=== PATIENT | male | born 1970 | race Caucasian/White ===

== ENCOUNTER 2018-04-25 17:58 | Inpatient (IN) ==
[2018-04-25] MEDS ORDERED: NS 1,000 ML IV ONE ×3 (18:14→23:44)
[2018-04-25] MEDS ORDERED: KETOROLAC 30 MG/ML INJECTION IVP ONE (18:14)
[2018-04-25] MEDS ORDERED: CEFTRIAXONE (ER USE ONLY) 1 GM in NS 100 ML IV ONE (18:14)
--- NOTE | 2018-04-25 18:19 | Emergency Department Report ---
Fever HPI - General Chief Complaint: Fever Stated Complaint: Fever, Weakness Time Seen by Provider: 04/25/18 18:14 - History of Present Illness HPI Narrative: 48-year-old male presents with sudden onset fever and body aches. He states that he went to bed yesterday feeling perfect, he ate dinner is normal. However when he woke up this morning he had fever and body ache. He is laid around all day, could not work. Has felt progressively worse during the day. Began to feel increasingly weak. States he does 250 pushups a day, as regular workout. However today he couldn't even get himself up off the couch. He does have a history of cellulitis left lower leg and this evening the leg began to hurt. He does work around [place] and his concern he may have been exposed to West Nile virus as well. No history of influenza, states he does not even get during flu seasons. He has had gastric bypass and does have anemia, does not maintain his B12 and iron as he is supposed to. - Related Data Home Medications Medication Instructions Recorded Confirmed Acetaminophen [Acetaminophen Extra 2,500 mg PO O 04/25/18 04/25/18 Strength] Ibuprofen [Advil] 1,000 mg PO O 04/25/18 04/25/18 Allergies Allergy/AdvReac Type Severity Reaction Status Date / Time No Known Allergies Allergy Verified 04/25/18 18:09 Review of Systems All systems: reviewed and negative except as stated PFS Patient Stated Medical History Anemia Yes Depression Yes Anemia, obesity Surgical History: gastricBypass - Social History Smoking status: Unknown if ever smoked Physical Exam - Limitations Limitations: no limitations - General General appearance: lethargic - Normal Exams: Head:: Normocephalic without trauma Chest/Respirations:: Clear all holland, with good airflow, and symmetry bilaterally Cardiovascular:: Regular rate and rhythm, without murmur or gallop, Pulses 2+ all extremities, capillary refill, <2 seconds all extremities Abdomen:: Bowel sounds positive, soft, non-tender, non-distended, no hepatosplenomegaly, masses or bruits noted Neurological:: and oriented, cranial nerves, motor/sensory/cerebellar, exams w/ o gross deficits, to observation Course Vital Signs Temperature 100.7 F H 04/25/18 18:00 Pulse Rate 77 04/25/18 18:00 Respiratory Rate 18 04/25/18 18:00 Blood Pressure 141/66 H 04/25/18 18:00 Pulse Oximetry 98 04/25/18 18:00 Temperature 101.6 F H 04/25/18 20:41 Pulse Rate 71 04/25/18 21:00 Respiratory Rate 12 04/25/18 21:20 Blood Pressure 141/68 H 04/25/18 21:00 Pulse Oximetry 99 04/25/18 21:00 Fever - [facility] Narrative Medical decision making narrative: Peripheral IV placed with 1 L normal saline bolus. Patient had some immediate improvement in mental status with IV fluid and had no difficulty communicating after the initial liter was approximately half way in. CBC, CMP, UA, lactate, CRP, blood culture, urine culture ordered. Chest x-ray also ordered. White count is normal with mild anemia noted which is appropriate for his history of B12 deficiency anemia. CMP is appropriate. Lactate is negative. CRP is elevated at 63. Chest x-ray shows possible very small right lower lobe infiltrate. CT head was ordered and is negative. Patient's confusion is fully resolved, he is much more comfortable after 30 mg Toradol and 1 mg of Ofirmev. Spoke with hospitalist and reviewed the case. Patient will be admitted observation with SIRS. Second liter of fluid was started. Patient was given 4 mg of morphine as well IV prior to leaving the ER. Rocephin given 1 g IV as soon as blood cultures obtained early in visit. - Medical Records Attestation: I reviewed the patient's medical records. - Lab Data Result diagrams: 04/25/18 18:35 04/25/18 18:35 Lab Results 04/25/18 04/25/18 04/25/18 Range/Units 18:35 18:35 19:19 WBC 8.6 (4.5-11.0) T/MM3 RBC 3.91 L (4.50-5.90) M/MM3 Hgb 9.8 L (13.5-17.5) GM/DL Hct 32.0 L (41-53) % MCV 81.8 (80-100) UM3 MCH 25.1 L (26-34) UUG MCHC 30.6 L (31-37) GM/DL RDW Std Deviation 44.0 (36.9-50.2) FL Plt Count 245 (130-400) T/MM3 MPV 10.0 (9.4-12.4) UM3 Immature Gran % (Auto) Not performed Neut % (Auto) Not performed Lymph % (Auto) Not performed [place] % (Auto) Not performed Eos % (Auto) Not performed Baso % (Auto) Not performed Neut # (Auto) Not performed Lymph # (Auto) Not performed [place] # (Auto) Not performed Eos # (Auto) Not performed Baso # (Auto) Not performed Abs Immat Gran (auto) Not performed Neutrophils % (Manual) 93.0 H (33-66) % Lymphocytes % (Manual) 3.0 L (23-45) % Monocytes % (Manual) 4.0 (0-9.0) % Neutrophils # (Manual) 8.0 H (1.8-7.7) T/MM3 Lymphocytes # (Manual) 0.3 L (1-4.8) T/MM3 Monocytes # (Manual) 0.3 (0-0.8) T/MM3 RBC Morph Comment Normal Turbidity < 20 (0-20) Sodium 140 (136-146) MEQ/L Potassium 4.0 (3.6-5) MEQ/L Chloride 108 H (98-107) MEQ/L Carbon Dioxide 22 (22-30) MEQ/L Anion Gap 10 (5-15) meq/L BUN 10.0 (9-20) MG/DL Creatinine 0.9 (0.8-1.5) mg/dL GFR Calculation 91 (>60) mL/min BUN/Creatinine Ratio 11 (6-26) RATIO Glucose 99 (75-110) MG/DL Calculated Osmolality 268 (261-280) MOSM/KG Calcium 8.6 (8.4-10.2) MG/DL Total Bilirubin 0.40 (0.20-1.30) MG/DL Icterus Index < 2 (0-7) AST 22 (17-59) U/L ALT 16 (1-50) U/L Alkaline Phosphatase 71 (38-126) U/L C-Reactive Protein 63.7 H (0-9) mg/L Total Protein 6.2 L (6.3-8.2) g/dL Albumin 3.5 (3.5-5.0) g/dL Globulin 2.7 (2.4-3.6) G/DL Albumin/Globulin Ratio 1.3 (1.1-2.2) RATIO Plasma Lactate 0.9 (0.6-2.2) MMOL/L Specimen Hemolysis < 15 (0-25) Ur Collection Type Urine Color (YELLOW) Urine Clarity Urine pH (5.0-8.0) Ur Specific [place] (1.015-1.025) Urine Protein (NEGATIVE) Urine Glucose (UA) (NEGATIVE) Urine Ketones (NEGATIVE) Urine Occult Blood (NEGATIVE) Urine Nitrate (NEGATIVE) Urine Bilirubin (NEGATIVE) Urine Urobilinogen (NORMAL) EU/DL Ur Leukocyte Esterase (NEGATIVE) Urinalysis Comment Adenovirus (PCR) Negative (Negative) B.parapertussis DNA PCR Negative (Negative) C. pneumoniae DNA (PCR) Negative (Negative) Coronavirus OC43 (PCR) Negative (Negative) Coronavirus HKU1 (PCR) Negative (Negative) Coronavirus 229E (PCR) Negative (Negative) Coronavirus NL63 (PCR) Negative (Negative) Human Metapneumovir PCR Negative (Negative) Influenza Type A (PCR) Negative (Negative) Influenza Type B (PCR) Negative (Negative) M. pneumoniae (PCR) Negative (Negative) Parainfluenza 1 (PCR) Negative (Negative) Parainfluenza 2 (PCR) Negative (Negative) Parainfluenza 3 (PCR) Negative (Negative) Parainfluenza 4 (PCR) Negative (Negative) RSV (PCR) Negative (Negative) Entero/Rhino (PCR) Negative (Negative) 04/25/18 Range/Units 19:31 WBC (4.5-11.0) T/MM3 RBC (4.50-5.90) M/MM3 Hgb (13.5-17.5) GM/DL Hct (41-53) % MCV (80-100) UM3 MCH (26-34) UUG MCHC (31-37) GM/DL RDW Std Deviation (36.9-50.2) FL Plt Count (130-400) T/MM3 MPV (9.4-12.4) UM3 Immature Gran % (Auto) Neut % (Auto) Lymph % (Auto) [place] % (Auto) Eos % (Auto) Baso % (Auto) Neut # (Auto) Lymph # (Auto) [place] # (Auto) Eos # (Auto) Baso # (Auto) Abs Immat Gran (auto) Neutrophils % (Manual) (33-66) % Lymphocytes % (Manual) (23-45) % Monocytes % (Manual) (0-9.0) % Neutrophils # (Manual) (1.8-7.7) T/MM3 Lymphocytes # (Manual) (1-4.8) T/MM3 Monocytes # (Manual) (0-0.8) T/MM3 RBC Morph Comment Turbidity (0-20) Sodium (136-146) MEQ/L Potassium (3.6-5) MEQ/L Chloride (98-107) MEQ/L Carbon Dioxide (22-30) MEQ/L Anion Gap (5-15) meq/L BUN (9-20) MG/DL Creatinine (0.8-1.5) mg/dL GFR Calculation (>60) mL/min BUN/Creatinine Ratio (6-26) RATIO Glucose (75-110) MG/DL Calculated Osmolality (261-280) MOSM/KG Calcium (8.4-10.2) MG/DL Total Bilirubin (0.20-1.30) MG/DL Icterus Index (0-7) AST (17-59) U/L ALT (1-50) U/L Alkaline Phosphatase (38-126) U/L C-Reactive Protein (0-9) mg/L Total Protein (6.3-8.2) g/dL Albumin (3.5-5.0) g/dL Globulin (2.4-3.6) G/DL Albumin/Globulin Ratio (1.1-2.2) RATIO Plasma Lactate (0.6-2.2) MMOL/L Specimen Hemolysis (0-25) Ur Collection Type Urine, void-cc/notcc Urine Color Yellow (YELLOW) Urine Clarity Clear Urine pH 8.5 A (5.0-8.0) Ur Specific [place] 1.015 (1.015-1.025) Urine Protein Negative (NEGATIVE) Urine Glucose (UA) Negative (NEGATIVE) Urine Ketones Negative (NEGATIVE) Urine Occult Blood Negative (NEGATIVE) Urine Nitrate Negative (NEGATIVE) Urine Bilirubin Negative (NEGATIVE) Urine Urobilinogen 0.2 (NORMAL) EU/DL Ur Leukocyte Esterase Negative (NEGATIVE) Urinalysis Comment Microscopic not ind. Adenovirus (PCR) (Negative) B.parapertussis DNA PCR (Negative) C. pneumoniae DNA (PCR) (Negative) Coronavirus OC43 (PCR) (Negative) Coronavirus HKU1 (PCR) (Negative) Coronavirus 229E (PCR) (Negative) Coronavirus NL63 (PCR) (Negative) Human Metapneumovir PCR (Negative) Influenza Type A (PCR) (Negative) Influenza Type B (PCR) (Negative) M. pneumoniae (PCR) (Negative) Parainfluenza 1 (PCR) (Negative) Parainfluenza 2 (PCR) (Negative) Parainfluenza 3 (PCR) (Negative) Parainfluenza 4 (PCR) (Negative) RSV (PCR) (Negative) Entero/Rhino (PCR) (Negative) - Radiology Data Attestation: I reviewed the patient's radiology results. Disposition Clinical Impression: SIRS (systemic inflammatory response syndrome) Disposition: 02 To [facility] Condition: Improved Prescriptions: No Action Ibuprofen [Advil] 1,000 mg PO O Acetaminophen [Acetaminophen Extra Strength] 2,500 mg PO O Time of Disposition: 22:20 - Seen By: physician
--- OUTSIDE RECORDS SUMMARY | 2018-04-25 18:20 | External Medical Summary | Clinical Summary ---
:1970 Author Organization [facility] Address [address] [place] [address] Care Team Providers Name Role Phone Unavailable Primary Care Provider Unavailable Allergies No Known Allergies Current Medications Prescription Sig. Disp. Refills Start Date End Date Status citalopram (CELEXA) Take 1 tablet (20 14 tablet 0 08/03/2017 Active 20 MG mg total) by mouth tabletIndications: daily. Depression QUEtiapine (SEROQUEL) Take 1 tablet (50 14 tablet 0 08/02/2017 Active 50 MG mg total) by mouth tabletIndications: at bedtime. Insomnia folic acid (FOLVITE) Take 1 tablet (1 mg 14 tablet 0 08/02/2017 Active 1 MG total) by mouth tabletIndications: daily. Alcohol use disorder, severe, dependence (HCC) multivitamin Take 1 tablet by 14 each 0 08/03/2017 Active w/minerals (CENTRUM) mouth daily. TABSIndications: Alcohol use disorder, severe, dependence (HCC) thiamine 100 MG Take 1 tablet (100 14 tablet 0 08/03/2017 Active tabletIndications: mg total) by mouth Alcohol use disorder, daily. severe, dependence (HCC) Medicated Lip Apply topically as 08/02/2017 Active Ointment (BLISTEX) needed (dry skin). OINTIndications: Lip May send this dryness medication home with the patient. 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) Resolved Problems Problem Noted Date Resolved Date Suicidal risk 07/30/2017 08/02/2017 Social History Tobacco Use Types Packs/Day Years Used Date Never Smoker Smokeless Tobacco: Current User Chew Comments: 1 can per day Alcohol Use Drinks/Week oz/Week Comments Yes 1/2 gallon per day, last used 07/26/17 Sex Assigned at Date Recorded Not on file Last Filed Vital Signs Vital Sign Reading Time Taken Blood Pressure 116/71 08/02/2017 8:21 AM CDT Pulse 98 08/02/2017 8:21 AM CDT Temperature 36.7 C (98 F) 08/02/2017 8:20 AM CDT Respiratory Rate 16 08/02/2017 8:20 AM CDT Oxygen Saturation 99% 08/02/2017 8:20 AM CDT Inhaled Oxygen Concentration - - Weight 104.3 kg (230 lb) 07/29/2017 8:24 PM CDT Height 175.3 cm (5' 9") 07/29/2017 8:24 PM CDT Body Mass Index 33.97 07/29/2017 8:24 PM CDT Plan of Treatment Health Maintenance Due Date Last Done Comments Varicella Vaccines (1 of 2 - 2-dose adolescent series) 02/06/1985 DTaP,Tdap,and Td Vaccines (1 - Tdap) 02/06/1991 Influenza Vaccine (#1) 2018 Results Not on filefrom Last 3 Months
--- OUTSIDE RECORDS SUMMARY | 2018-04-25 18:20 | External Medical Summary | Referral Summary ---
:1970 Author Organization [facility] Address [address] [place] [address] Care Team Providers Name Role Phone No PCP, Pt States Primary Care Physician Encounter [facility] Date(s): 11/14/17 - 11/14/[address] [address] [place] Encounter Diagnosis Headache (Discharge Diagnosis) - 11/14/17 Weakness (Discharge Diagnosis) - 11/14/17 Discharge Disposition: 01-Home or Self Care Attending Physician: Gutierrez Hanna MD Admitting Physician: Gutierrez Hanna MD Vital Signs Most recent to oldest [Reference Range]: 1 Temperature Oral [35.8-37.3 degC] 36.1 degC (11/14/17 4:12 PM) Peripheral Pulse Rate [60-100 bpm] 63 bpm (11/14/17 4:12 PM) Heart Rate Monitored [60-100 bpm] 62 bpm (11/14/17 3:30 PM) Respiratory Rate [14-20 br/min] 18 br/min (11/14/17 4:12 PM) Blood Pressure [90-140/60-90 mmHg] 121/84 mmHg (11/14/17 4:12 PM) Mean Arterial Pressure, Cuff 108 mmHg (11/14/17 3:30 PM) SpO2 100 % (11/14/17 4:12 PM) Problem List Condition Effective Dates Status Health Status Informant Anemia(Confirmed) Active patient Allergies, Adverse Reactions, Alerts No Known Medication Allergies Results Hematology Most recent to oldest [Reference Range]: 1 WBC [4.8-10.8 10*3/uL] 6.3 10*3/uL (11/14/17 10:52 AM) RBC [4.60-6.20] 4.15 *LOW* (11/14/17 10:52 AM) Hgb [14.0-18.0 gm/dL] 9.6 gm/dL *LOW* (11/14/17 10:52 AM) Hct [42.0-52.0 %] 31.9 % *LOW* (11/14/17 10:52 AM) MCV [82.0-99.0 fL] 76.9 fL *LOW* (11/14/17 10:52 AM) MCH [27.0-32.0 pg] 23.1 pg *LOW* (11/14/17 10:52 AM) MCHC [32.0-36.0 gm/dL] 30.1 gm/dL *LOW* (11/14/17 10:52 AM) RDW [11.5-14.5 %] 15.4 % *HI* (11/14/17 10:52 AM) Platelet [150-400 10*3/uL] 306 10*3/uL (11/14/17 10:52 AM) MPV [9.4-12.3 fL] 10.3 fL (11/14/17 10:52 AM) Immature Granulocytes [0.0-1.0 %] 0.2 % (11/14/17 10:52 AM) Neutrophils [51-75 %] 61 % (11/14/17 10:52 AM) Lymphocytes [20-46 %] 30 % (11/14/17 10:52 AM) Monocytes [4-11 %] 7 % (11/14/17 10:52 AM) Eosinophils [0-4 %] 1 % (11/14/17 10:52 AM) Basophils [0-2 %] 1 % (11/14/17 10:52 AM) Neutro Absolute [1.90-7.00] 3.87 (11/14/17 10:52 AM) Lymph Absolute [0.80-3.30] 1.90 (11/14/17 10:52 AM) [place] Absolute [0.30-1.00] 0.44 (11/14/17 10:52 AM) Eos Absolute [0.00-0.50] 0.06 (11/14/17 10:52 AM) Baso Absolute [0.00-0.20] 0.04 (11/14/17 10:52 AM) Nucleated RBC Automated [0 /100 WBC] 0.0 /100 WBC (11/14/17 10:52 AM) Chemistry Most recent to oldest [Reference Range]: 1 Sodium Lvl [136-144 mEq/L] 137 mEq/L (11/14/17 10:52 AM) Potassium Lvl [3.6-5.1 mEq/L] 3.8 mEq/L (11/14/17 10:52 AM) Chloride [99-109 mEq/L] 104 mEq/L (11/14/17 10:52 AM) CO2 [22-32 mEq/L] 24 mEq/L (11/14/17 10:52 AM) AGAP [3-20 mEq/L] 9 mEq/L (11/14/17 10:52 AM) BUN [4-20 mg/dL] 10 mg/dL (11/14/17 10:52 AM) Glucose Lvl [70-100 mg/dL] 114 mg/dL *HI* (11/14/17 10:52 AM) Creatinine Lvl [0.64-1.27 mg/dL] 0.88 mg/dL (11/14/17 10:52 AM) eGFR [>60 mL/min] >60 mL/min 1 (11/14/17 10:52 AM) Calcium Lvl [8.6-10.0 mg/dL] 9.1 mg/dL (11/14/17 10:52 AM) Albumin Lvl [3.5-4.8 gm/dL] 3.7 gm/dL (11/14/17 10:52 AM) Total Protein [6.1-7.9 gm/dL] 6.4 gm/dL (11/14/17 10:52 AM) Globulin [1.9-4.3 gm/dL] 2.7 gm/dL (11/14/17 10:52 AM) ALT [17-63 U/L] 19 U/L (11/14/17 10:52 AM) AST [15-41 U/L] 26 U/L (11/14/17 10:52 AM) Alk Phos [26-104 U/L] 72 U/L (11/14/17 10:52 AM) Bili Total [0.2-1.2 mg/dL] 0.4 mg/dL 2 (11/14/17 10:52 AM) Troponin [<0.06 ng/mL] <0.05 ng/mL (11/14/17 10:52 AM) 1Result Comment: Multiply eGFR results by 1.21 for race.2Result Comment: Naproxen, specifically the metabolite O-desmethylnaproxen, may cause spurious elevation in Total Bilirubin levels. Social History Social History Type Response Smoking Status 10 or more cigarettes (1/2 pack or more)/day in last 30 days; Type: Oral entered on: 11/14/17
--- OUTSIDE RECORDS SUMMARY | 2018-04-25 18:20 | External Medical Summary | Referral Summary ---
:1970 Author Organization [facility] Address [address] [place] [address] Care Team Providers Name Role Phone No PCP, Pt States Primary Care Physician Encounter [facility] [id number] Date(s): 02/04/18 - 02/05/18 [address] [place] [address] [place] Discharge Disposition: 07-Left Without Being Seen Vital Signs Most recent to oldest [Reference Range]: 1 Temperature Oral [35.8-37.3 degC] 36.4 degC (02/04/18 11:50 PM) Peripheral Pulse Rate [60-100 bpm] 106 bpm *HI* (02/04/18 11:50 PM) Respiratory Rate [14-20 br/min] 22 br/min *HI* (02/04/18 11:50 PM) Blood Pressure [90-140/60-90 mmHg] 123/74 mmHg (02/04/18 11:50 PM) SpO2 96 % (02/04/18 11:50 PM) Problem List Condition Effective Dates Status Health Status Informant Acute pain(Confirmed) Active Anemia(Confirmed) Active At risk for activity Active intolerance(Confirmed)1 Fluid imbalance(Confirmed)2 Active 1Problem added automatically by system based on initiation of At Risk for Activity Intolerance Plan of [id number] added automatically by system based on initiation of Fluid Volume Imbalance Plan of Care Allergies, Adverse Reactions, Alerts No Known Medication Allergies Medications Carafate 1 g oral tablet 1 g 1 tabs, Oral, QIDACHS, # 120 tabs, 0 Refill(s) Start Date: 01/24/18 Stop Date: 02/23/18 Status: Orderedferrous sulfate 325 mg (65 mg elemental iron) oral delayed release tablet 325 mg 1 tabs, Oral, Daily, # 30 tabs, 0 Refill(s) Start Date: 01/24/18 Status: OrderedFINISHED MEDICATION FINISHED MEDICATION, See Instructions, Bactrim DS 1 tabs oral twice daily x 5 days FINISHED 01/29/18, 0 Refill(s) Start Date: 02/05/18 Status: OrderedProtonix 40 mg oral delayed release tablet 40 mg 1 tabs, Oral, BID, # 180 tabs, 0 Refill(s) Start Date: 01/24/18 Stop Date: 04/24/18 Status: Ordered Procedures Procedure Date Related Diagnosis Body Site Status Esophagogastroduodenoscopy Balloon 01/23/18 Completed Dilatation1 Procedure with Anesthesia2 01/23/18 Completed 1auto-populated from documented surgical [id number] from documented surgical case Social History Social History Type Response Smoking Status Former smoker, quit more than 30 days ago; Type: Oral entered on: 01/19/18
--- OUTSIDE RECORDS SUMMARY | 2018-04-25 18:20 | External Medical Summary | Referral Summary ---
:1970 Author Organization [facility] Address [address] [place] [address] Care Team Providers Name Role Phone No PCP, States Primary Care Physician Encounter VC Date(s): 02/10/18 - 02/11/18 [facility] [address] [place] [id number] Encounter Diagnosis Electrolyte abnormality (Discharge Diagnosis) - 02/11/18 Alcohol intoxication (Discharge Diagnosis) - 02/10/18 Anemia (Discharge Diagnosis) - 02/11/18 Alcohol abuse (Discharge Diagnosis) - 02/11/18 Discharge Disposition: 01-Home or Self Care Attending Physician: Yunior Kay DO Admitting Physician: Yunior Kay DO Vital Signs Most recent to oldest [Reference Range]: 1 Temperature Temporal Artery [36.3-37.8 degC] 36.3 degC (02/10/18 3:39 AM) Peripheral Pulse Rate [60-100 bpm] 78 bpm (02/10/18 3:39 AM) Heart Rate Monitored [60-100 bpm] 63 bpm (02/11/18 3:11 AM) Respiratory Rate [14-20 br/min] 14 br/min (02/11/18 3:11 AM) Blood Pressure [90-140/60-90 mmHg] 129/74 mmHg (02/11/18 3:11 AM) Mean Arterial Pressure, Cuff 92 mmHg (02/11/18 12:08 AM) SpO2 99 % (02/11/18 3:11 AM) Problem List Condition Effective Dates Status Health Status Informant Acute pain(Confirmed) Active Anemia(Confirmed) Active At risk for activity Active intolerance(Confirmed)1 Fluid imbalance(Confirmed)2 Active 1Problem added automatically by system based on initiation of At Risk for Activity Intolerance Plan of [id number] added automatically by system based on initiation of Fluid Volume Imbalance Plan of Care Allergies, Adverse Reactions, Alerts No Known Medication Allergies Medications Antioxidant Multiple Vitamins (A,D,E,K-intensive) and Minerals oral capsule 1 caps, Oral, Daily, # 60 caps, 0 Refill(s), Pharmacy: [facility] #[id number] Start Date: 02/06/18 Status: OrderedExcedrin Express oral tablet 2 tabs, Oral, q6hr, as needed for headache, # 50 tabs, 0 Refill(s), Pharmacy: [facility] #[id number] Start Date: 02/08/18 Status: Orderedferrous sulfate 325 mg (65 mg elemental iron) oral delayed release tablet 325 mg 1 tabs, Oral, Daily, # 30 tabs, 0 Refill(s), Pharmacy: [facility] # [id number], 1 tabs Oral Daily Start Date: 02/06/18 Status: Orderedfolic acid 1 mg oral tablet 1 mg 1 tabs, Oral, Daily, # 30 tabs, 0 Refill(s), Pharmacy: [facility] # [id number], 1 tabs Oral Daily Start Date: 02/06/18 Status: Orderedibuprofen 800 mg oral tablet 800 mg 1 tabs, Oral, q6hr, Headache, not to exceed 3200 mg/day, # 30 tabs, 0 Refill(s), Pharmacy: [facility] #[id number], 1 tabs Oral q6hr,PRN:Headache, Instr:not to exceed 3200 mg/day Start Date: 02/08/18 Status: OrderedMultiple Vitamins with Iron oral tablet 1 tabs, Oral, Daily, # 30 tabs, 0 Refill(s) Start Date: 02/11/18 Status: OrderedProtonix 40 mg oral delayed release tablet 40 mg 1 tabs, Oral, BID, # 180 tabs, 0 Refill(s), Pharmacy: [facility] # [id number], 1 tabs Oral BID,x90 days Start Date: 02/06/18 Stop Date: 05/07/18 Status: Orderedsertraline 50 mg oral tablet 50 mg 1 tabs, Oral, Daily, Double dose to 100mg a day in 1 week, # 30 tabs, 4 Refill(s), Pharmacy: [facility] #[id number], 1 tabs Oral Daily,Instr:Double dose to 100mg a day in 1 week Start Date: 02/08/18 Status: Orderedthiamine 100 mg oral tablet 100 mg 1 tabs, Oral, Daily, # 30 tabs, 0 Refill(s), Pharmacy: [facility] # [id number], 1 tabs Oral Daily Start Date: 02/06/18 Status: Ordered Results Hematology Most recent to oldest [Reference Range]: 1 WBC [4.8-10.8 10*3/uL] 6.8 10*3/uL (02/10/18 3:48 AM) RBC [4.60-6.20] 4.15 *LOW* (02/10/18 3:48 AM) Hgb [14.0-18.0 gm/dL] 10.1 gm/dL *LOW* (02/10/18 3:48 AM) Hct [42.0-52.0 %] 32.6 % *LOW* (02/10/18 3:48 AM) MCV [82.0-99.0 fL] 78.6 fL *LOW* (02/10/18 3:48 AM) MCH [27.0-32.0 pg] 24.3 pg *LOW* (02/10/18 3:48 AM) MCHC [32.0-36.0 gm/dL] 31.0 gm/dL *LOW* (02/10/18 3:48 AM) RDW [11.5-14.5 %] 20.2 % *HI* (02/10/18 3:48 AM) Platelet [150-400 10*3/uL] 414 10*3/uL *HI* (02/10/18 3:48 AM) MPV [9.4-12.3 fL] 10.0 fL (02/10/18 3:48 AM) Immature Granulocytes [0.0-1.0 %] 0.3 % (02/10/18 3:48 AM) Neutrophils [51-75 %] 58 % (02/10/18 3:48 AM) Lymphocytes [20-46 %] 35 % (02/10/18 3:48 AM) Monocytes [4-11 %] 6 % (02/10/18 3:48 AM) Eosinophils [0-4 %] 0 % (02/10/18 3:48 AM) Basophils [0-2 %] 0 % (02/10/18 3:48 AM) Neutro Absolute [1.90-7.00] 3.92 (02/10/18 3:48 AM) Lymph Absolute [0.80-3.30] 2.41 (02/10/18 3:48 AM) [place] Absolute [0.30-1.00] 0.43 (02/10/18 3:48 AM) Eos Absolute [0.00-0.50] 0.01 (02/10/18 3:48 AM) Baso Absolute [0.00-0.20] 0.03 (02/10/18 3:48 AM) Differential Scanned Slide (02/10/18 3:48 AM) Chemistry Most recent to oldest [Reference Range]: 1 Sodium Lvl [136-144 mEq/L] 141 mEq/L (02/10/18 3:48 AM) Potassium Lvl [3.6-5.1 mEq/L] 3.2 mEq/L *LOW* (02/10/18 3:48 AM) Chloride [99-109 mEq/L] 110 mEq/L *HI* (02/10/18 3:48 AM) CO2 [22-32 mEq/L] 21 mEq/L *LOW* (02/10/18 3:48 AM) AGAP [3-20 mEq/L] 10 mEq/L (02/10/18 3:48 AM) BUN [4-20 mg/dL] 9 mg/dL (02/10/18 3:48 AM) Glucose Lvl [70-100 mg/dL] 94 mg/dL (02/10/18 3:48 AM) Creatinine Lvl [0.64-1.27 mg/dL] 0.94 mg/dL (02/10/18 3:48 AM) eGFR [>60 mL/min] >60 mL/min 1 (02/10/18 3:48 AM) Calcium Lvl [8.6-10.0 mg/dL] 7.6 mg/dL *LOW* (02/10/18 3:48 AM) Albumin Lvl [3.5-4.8 gm/dL] 3.1 gm/dL *LOW* (02/10/18 3:48 AM) Total Protein [6.1-7.9 gm/dL] 5.6 gm/dL *LOW* (02/10/18 3:48 AM) Globulin [1.9-4.3 gm/dL] 2.5 gm/dL (02/10/18 3:48 AM) ALT [17-63 U/L] 11 U/L *LOW* (02/10/18 3:48 AM) AST [15-41 U/L] 19 U/L (02/10/18 3:48 AM) Alk Phos [26-104 U/L] 52 U/L (02/10/18 3:48 AM) Bili Total [0.2-1.2 mg/dL] 0.3 mg/dL 2 (02/10/18 3:48 AM) 1Result Comment: Multiply eGFR results by 1.21 for race.2Result Comment: Naproxen, specifically the metabolite O-desmethylnaproxen, may cause spurious elevation in Total Bilirubin levels.Therapeutic Drug Monitoring Most recent to [Reference Range]: 1 Acetaminophen Lvl [10-30 ug/mL] <10 ug/mL (02/10/18 3:48 AM) Salicylate Lvl [0-30 mg/dL] <4 mg/dL 1 (02/10/18 3:48 AM) 1Result Comment: Sulfasalazine may cause false high salicylate levels and Sulfapyridine may cause false low salicylate levels.Toxicology Most recent to [Reference Range]: 1 Ethanol Lvl 176 mg/dL (02/10/18 5:18 PM) Acetone GC None Detected (02/10/18 5:29 AM) Ethanol GC 392 mg/dL (02/10/18 5:29 AM) Methanol GC None Detected (02/10/18 5:29 AM) Isopropanol GC None Detected (02/10/18 5:29 AM) Volatile Interpretation see below 1 (02/10/18 5:29 AM) Ethylene Glycol Level [0-8] Not Detected (02/10/18 5:29 AM) U Amphetamine Scrn Negative (02/10/18 3:48 AM) U Cocaine Scrn Negative (02/10/18 3:48 AM) U Cannab Scrn Negative (02/10/18 3:48 AM) U Opiate Scrn Positive *ABN* (02/10/18 3:48 AM) U PCP Scrn Negative (02/10/18 3:48 AM) U Benzodiazepine Scrn Negative (02/10/18 3:48 AM) U Barbiturate Scrn Negative (02/10/18 3:48 AM) Methadone Lvl Negative (02/10/18 3:48 AM) Tricyclics Negative 2 (02/10/18 3:48 AM) 1Result Comment: Measurable amounts of the tested volatile substance(s) are not present in normal body fluid.2Result Comment: Cut-off concentrations: Amphetamines: 1000 ng/mL Cocaine: 300 ng/mL Cannabinoid: 50 ng/mL Opiate: 300 ng/mL Phencyclidine (PCP): 25 ng/mL Benzodiazepine: 200 ng/mL Barbiturate: 200 ng/mL Methadone: 300 ng/mL Tricyclic: 300 ng/mL The urine drug screen assays are qualitative screens. A more specific GC/MS method must be performed to obtain a confirmed analytical result. Unconfirmed screening results must not be used for non-medical purposes(e.g. employment or legal testing) Procedures Procedure Date Related Diagnosis Body Site Status Esophagogastroduodenoscopy Balloon 01/23/18 Completed Dilatation1 Procedure with Anesthesia2 01/23/18 Completed 1auto-populated from documented surgical [id number] from documented surgical case Social History Social History Type Response Smoking Status Former smoker, quit more than 30 days ago; Type: Oral entered on: 01/19/18
--- OUTSIDE RECORDS SUMMARY | 2018-04-25 18:20 | External Medical Summary | Referral Summary ---
:1970 Author Organization [facility] Address [address] [place] [address] Care Team Providers Name Role Phone No PCP, States Primary Care Physician Encounter VC Date(s): 02/05/18 - 02/08/18 [facility] [address], [place] [address] Encounter Diagnosis Anemia (Discharge Diagnosis) - 02/08/18 Discharge Disposition: 01-Home or Self Care Attending Physician: Mary De Oliveira MD Admitting Physician: Jen Valenzuela MD Vital Signs Most recent to oldest [Reference Range]: 1 Temperature Oral [35.8-37.3 degC] 36.6 degC (02/08/18 8:06 AM) Peripheral Pulse Rate [60-100 bpm] 72 bpm (02/08/18 8:06 AM) Heart Rate Monitored [60-100 bpm] 62 bpm (02/05/18 8:25 AM) Respiratory Rate [14-20 br/min] 20 br/min (02/08/18 8:06 AM) Blood Pressure [90-140/60-90 mmHg] 133/73 mmHg (02/08/18 8:06 AM) Mean Arterial Pressure, Cuff 96 mmHg (02/08/18 5:00 AM) SpO2 97 % (02/08/18 8:06 AM) Problem List Condition Effective Dates Status Health Status Informant Acute pain(Confirmed) Active Anemia(Confirmed) Active At risk for activity Active intolerance(Confirmed)1 Fluid imbalance(Confirmed)2 Active 1Problem added automatically by system based on initiation of At Risk for Activity Intolerance Plan of [id number] added automatically by system based on initiation of Fluid Volume Imbalance Plan of Care Allergies, Adverse Reactions, Alerts No Known Medication Allergies Medications Antioxidant Multiple Vitamins (A,D,E,K-intensive) and Minerals oral capsule 1 caps, Oral, Daily, # 60 caps, 0 Refill(s), Pharmacy: [facility] #[id number] Start Date: 02/06/18 Status: OrderedExcedrin Express oral tablet 2 tabs, Oral, q6hr, as needed for headache, # 50 tabs, 0 Refill(s), Pharmacy: [facility] #[id number] Start Date: 02/08/18 Status: Orderedferrous sulfate 325 mg (65 mg elemental iron) oral delayed release tablet 325 mg 1 tabs, Oral, Daily, # 30 tabs, 0 Refill(s), Pharmacy: [facility] # [id number], 1 tabs Oral Daily Start Date: 02/06/18 Status: Orderedfolic acid 1 mg oral tablet 1 mg 1 tabs, Oral, Daily, # 30 tabs, 0 Refill(s), Pharmacy: [facility] # [id number], 1 tabs Oral Daily Start Date: 02/06/18 Status: Orderedibuprofen 800 mg oral tablet 800 mg 1 tabs, Oral, q6hr, Headache, not to exceed 3200 mg/day, # 30 tabs, 0 Refill(s), Pharmacy: [facility] #[id number], 1 tabs Oral q6hr,PRN:Headache, Instr:not to exceed 3200 mg/day Start Date: 02/08/18 Status: OrderedProtonix 40 mg oral delayed release tablet 40 mg 1 tabs, Oral, BID, # 180 tabs, 0 Refill(s), Pharmacy: [facility] # [id number], 1 tabs Oral BID,x90 days Start Date: 02/06/18 Stop Date: 05/07/18 Status: Orderedsertraline 50 mg oral tablet 50 mg 1 tabs, Oral, Daily, Double dose to 100mg a day in 1 week, # 30 tabs, 4 Refill(s), Pharmacy: [facility] #[id number], 1 tabs Oral Daily,Instr:Double dose to 100mg a day in 1 week Start Date: 02/08/18 Status: Orderedthiamine 100 mg oral tablet 100 mg 1 tabs, Oral, Daily, # 30 tabs, 0 Refill(s), Pharmacy: [facility] # [id number], 1 tabs Oral Daily Start Date: 02/06/18 Status: Ordered Results Hematology Most recent to oldest [Reference Range]: 1 WBC [4.8-10.8 10*3/uL] 6.2 10*3/uL (02/08/18 5:13 AM) RBC [4.60-6.20] 3.98 *LOW* (02/08/18 5:13 AM) Hgb [14.0-18.0 gm/dL] 9.6 gm/dL *LOW* (02/08/18 5:13 AM) Hct [42.0-52.0 %] 31.4 % *LOW* (02/08/18 5:13 AM) MCV [82.0-99.0 fL] 78.9 fL *LOW* (02/08/18 5:13 AM) MCH [27.0-32.0 pg] 24.1 pg *LOW* (02/08/18 5:13 AM) MCHC [32.0-36.0 gm/dL] 30.6 gm/dL *LOW* (02/08/18 5:13 AM) RDW [11.5-14.5 %] 19.3 % *HI* (02/08/18 5:13 AM) Platelet [150-400 10*3/uL] 365 10*3/uL (02/08/18 5:13 AM) MPV [9.4-12.3 fL] 9.8 fL (02/08/18 5:13 AM) Immature Granulocytes [0.0-1.0 %] 0.1 % (02/06/18 4:06 AM) Neutrophils [51-75 %] 53 % (02/06/18 4:06 AM) Lymphocytes [20-46 %] 36 % (02/06/18 4:06 AM) Monocytes [4-11 %] 8 % (02/06/18 4:06 AM) Eosinophils [0-4 %] 2 % (02/06/18 4:06 AM) Basophils [0-2 %] 1 % (02/06/18 4:06 AM) Neutro Absolute [1.90-7.00] 3.73 (02/06/18 4:06 AM) Lymph Absolute [0.80-3.30] 2.51 (02/06/18 4:06 AM) [place] Absolute [0.30-1.00] 0.59 (02/06/18 4:06 AM) Eos Absolute [0.00-0.50] 0.13 (02/06/18 4:06 AM) Baso Absolute [0.00-0.20] 0.04 (02/06/18 4:06 AM) Nucleated RBC Automated [0 /100 WBC] 0.0 /100 WBC (02/06/18 4:06 AM) Differential Scanned Slide (02/05/18 4:36 AM) Reticulocyte [0.6-2.5 %] 1.1 % (02/07/18 5:39 AM) Chemistry Most recent to oldest [Reference Range]: 1 Sodium Lvl [136-144 mEq/L] 137 mEq/L (02/08/18 5:13 AM) Potassium Lvl [3.6-5.1 mEq/L] 3.9 mEq/L (02/08/18 5:13 AM) Chloride [99-109 mEq/L] 105 mEq/L (02/08/18 5:13 AM) CO2 [22-32 mEq/L] 28 mEq/L (02/08/18 5:13 AM) AGAP [3-20 mEq/L] 4 mEq/L (02/08/18 5:13 AM) BUN [4-20 mg/dL] 11 mg/dL (02/08/18 5:13 AM) Glucose Lvl [70-100 mg/dL] 93 mg/dL (02/08/18 5:13 AM) Creatinine Lvl [0.64-1.27 mg/dL] 0.91 mg/dL (02/08/18 5:13 AM) eGFR [>60 mL/min] >60 mL/min 1 (02/08/18 5:13 AM) Calcium Lvl [8.6-10.0 mg/dL] 8.3 mg/dL *LOW* (02/08/18 5:13 AM) Albumin Lvl [3.5-4.8 gm/dL] 2.9 gm/dL *LOW* (02/08/18 5:13 AM) Total Protein [6.1-7.9 gm/dL] 5.6 gm/dL *LOW* (02/06/18 4:06 AM) Globulin [1.9-4.3 gm/dL] 2.7 gm/dL (02/06/18 4:06 AM) ALT [17-63 U/L] 13 U/L *LOW* (02/06/18 4:06 AM) AST [15-41 U/L] 15 U/L (02/06/18 4:06 AM) Alk Phos [26-104 U/L] 51 U/L (02/06/18 4:06 AM) Bili Total [0.2-1.2 mg/dL] 0.9 mg/dL 2 (02/06/18 4:06 AM) Iron [65-175 mcg/dL] 40 mcg/dL *LOW* (02/07/18 5:39 AM) TIBC [268-490 mcg/dL] 378 mcg/dL (02/07/18 5:39 AM) Iron Sat [11-46 %] 11 % (02/07/18 5:39 AM) Transferrin [180-329 mg/dL] 254 mg/dL (02/07/18 5:39 AM) Ferritin Lvl [24-340 ng/mL] 22 ng/mL *LOW* (02/07/18 5:39 AM) Magnesium Lvl [1.8-2.5 mg/dL] 1.7 mg/dL *LOW* (02/08/18 5:13 AM) Phosphorus [2.4-4.7 mg/dL] 3.8 mg/dL 3 (02/08/18 5:13 AM) Calcium Ionized [1.19-1.41 mmol/L] 1.27 mmol/L (02/08/18 5:13 AM) Osmolality [275-300 mOsm/kg] 329 mOsm/kg *HI* (02/05/18 8:10 AM) Folate Lvl [7.0-31.4 ng/mL] 3.4 ng/mL *LOW* (02/05/18 4:36 AM) Blood Glucose, Capillary [70-100 mg/dL] 87 mg/dL (02/06/18 10:00 AM) 1Result Comment: Multiply eGFR results by 1.21 for race.2Result Comment: Naproxen, specifically the metabolite O-desmethylnaproxen, may cause spurious elevation in Total Bilirubin levels.3Result Comment: High dosages of liposomal Amphotericin B (AmBisome) therapy or other drug preparations that use a liposomal envelope to facilitate drug delivery may cause falsely elevated results for phosphorus.Therapeutic Drug Monitoring Most recent to [Reference Range]: 1 Acetaminophen Lvl [10-30 ug/mL] <10 ug/mL (02/05/18 4:36 AM) Salicylate Lvl [0-30 mg/dL] <4 mg/dL 1 (02/05/18 4:36 AM) 1Result Comment: Sulfasalazine may cause false high salicylate levels and Sulfapyridine may cause false low salicylate levels.Toxicology Most recent to oldest [Reference Range]: 1 Ethanol Lvl 183 mg/dL (02/05/18 4:36 AM) Acetone GC 46 mg/dL (02/05/18 8:06 AM) Ethanol GC None Detected (02/05/18 8:06 AM) Methanol GC None Detected (02/05/18 8:06 AM) Isopropanol GC 17 mg/dL (02/05/18 8:06 AM) Volatile Interpretation see below 1 (02/05/18 8:06 AM) Ethylene Glycol Level [0-8] Not Detected (02/05/18 8:10 AM) 1Result Comment: Measurable amounts of the tested volatile substance(s) are not present in normal body fluid.Urinalysis Most recent to [Reference Range]: 1 UA Color Yellow (02/06/18 4:27 PM) UA Appear Clear (02/06/18 4:27 PM) UA pH [5.0-8.0] 5.0 (02/06/18 4:27 PM) UA Leuk Est [Negative] Negative (02/06/18 4:27 PM) UA Nitrite [Negative] Negative (02/06/18 4:27 PM) UA Protein [Negative] Negative (02/06/18 4:27 PM) UA Glucose [Negative] Negative (02/06/18 4:27 PM) UA Ketones [Negative] Negative (02/06/18 4:27 PM) UA Urobilinogen [<1.0 mg/dL] >=4.0 mg/dL (02/06/18 4:27 PM) UA Bili [Negative] Negative (02/06/18 4:27 PM) UA Blood [Negative] Negative (02/06/18 4:27 PM) UA Spec Grav [1.003-1.030] 1.020 (02/06/18 4:27 PM) Type Clean Catch (02/06/18 4:27 PM) Procedures Procedure Date Related Diagnosis Body Site Status Esophagogastroduodenoscopy Balloon 01/23/18 Completed Dilatation1 Procedure with Anesthesia2 01/23/18 Completed 1auto-populated from documented surgical [id number] from documented surgical case Social History Social History Type Response Smoking Status Former smoker, quit more than 30 days ago; Type: Oral entered on: 01/19/18
--- OUTSIDE RECORDS SUMMARY | 2018-04-25 18:20 | External Medical Summary | Referral Summary ---
:1970 Author Organization [facility] Address [address] [place] [address] Care Team Providers Name Role Phone No PCP, States Primary Care Physician Encounter VC Date(s): 01/19/18 - 01/24/[address] [id number] [place] Encounter Diagnosis Pancreatitis (Discharge Diagnosis) - 01/19/18 Chest pain (Discharge Diagnosis) - 01/19/18 Abdominal pain (Discharge Diagnosis) - 01/19/18 Anasarca (Discharge Diagnosis) - 01/19/18 Nausea and vomiting (Discharge Diagnosis) - 01/19/18 Hypokalemia (Discharge Diagnosis) - 01/19/18 Acidosis (Discharge Diagnosis) - 01/19/18 General weakness (Discharge Diagnosis) - 01/19/18 Discharge Disposition: 01-Home or Self Care Attending Physician: Margie Carmona DO Admitting Physician: Devon Osei MD Vital Signs Most recent to oldest [Reference Range]: 1 Temperature Axillary [35.2-36.7 degC] 38.8 degC *HI* (01/20/18 8:55 AM) Temperature Oral [35.8-37.3 degC] 36.8 degC (01/24/18 12:00 PM) Temperature Skin [36-37 degC] 36.9 degC (01/23/18 2:46 PM) Peripheral Pulse Rate [60-100 bpm] 54 bpm *LOW* (01/24/18 12:00 PM) Heart Rate Monitored [60-100 bpm] 53 bpm *LOW* (01/23/18 3:09 PM) Respiratory Rate [14-20 br/min] 18 br/min (01/24/18 12:00 PM) Blood Pressure [90-140/60-90 mmHg] 119/77 mmHg (01/24/18 12:00 PM) Mean Arterial Pressure, Cuff 88 mmHg (01/23/18 3:09 PM) SpO2 96 % (01/24/18 12:00 PM) Remote Telemetry Ongoing (01/23/18 8:00 PM) Problem List Condition Effective Dates Status Health Status Informant Acute pain(Confirmed) Active Anemia(Confirmed) Active patient Fluid imbalance(Confirmed)1 Active 1Problem added automatically by system based on initiation of Fluid Volume Imbalance Plan of Care Allergies, Adverse Reactions, Alerts No Known Medication Allergies Medications Bactrim DS 800 mg-160 mg oral tablet 1 tabs, Oral, BID, X 5 days, # 10 tabs, 0 Refill(s) Start Date: 01/24/18 Stop Date: 01/29/18 Status: OrderedCarafate 1 g oral tablet 1 g 1 tabs, Oral, QIDACHS, # 120 tabs, 0 Refill(s) Start Date: 01/24/18 Stop Date: 02/23/18 Status: Orderedferrous sulfate 325 mg (65 mg elemental iron) oral delayed release tablet 325 mg 1 tabs, Oral, Daily, # 30 tabs, 0 Refill(s) Start Date: 01/24/18 Status: OrderedNorco 5 mg-325 mg oral tablet 2 tabs, Oral, q4hr, Pain, X 7 days, # 12 tabs, 0 Refill(s) Start Date: 01/24/18 Stop Date: 01/31/18 Status: OrderedProtonix 40 mg oral delayed release tablet 40 mg 1 tabs, Oral, BID, # 180 tabs, 0 Refill(s) Start Date: 01/24/18 Stop Date: 04/24/18 Status: Ordered Results Hematology Most recent to oldest [Reference Range]: 1 WBC [4.8-10.8 10*3/uL] 7.2 10*3/uL (01/23/18 5:49 AM) RBC [4.60-6.20] 4.66 (01/23/18 5:49 AM) Hgb [14.0-18.0 gm/dL] 11.0 gm/dL *LOW* (01/23/18 5:49 AM) Hct [42.0-52.0 %] 35.6 % *LOW* (01/23/18 5:49 AM) MCV [82.0-99.0 fL] 76.4 fL *LOW* (01/23/18 5:49 AM) MCH [27.0-32.0 pg] 23.6 pg *LOW* (01/23/18 5:49 AM) MCHC [32.0-36.0 gm/dL] 30.9 gm/dL *LOW* (01/23/18 5:49 AM) RDW [11.5-14.5 %] 18.3 % *HI* (01/23/18 5:49 AM) Platelet [150-400 10*3/uL] 273 10*3/uL (01/23/18 5:49 AM) MPV [9.4-12.3 fL] 10.4 fL (01/23/18 5:49 AM) Immature Granulocytes [0.0-1.0 %] 0.3 % (01/23/18:49 AM) Neutrophils [51-75 %] 52 % (01/23/18 5:49 AM) Lymphocytes [20-46 %] 30 % (01/23/18 5:49 AM) Monocytes [4-11 %] 15 % *HI* (01/23/18 5:49 AM) Eosinophils [0-4 %] 3 % (01/23/18 5:49 AM) Basophils [0-2 %] 0 % (01/23/18 5:49 AM) Neutro Absolute [1.90-7.00] 3.74 (01/23/18 5:49 AM) Lymph Absolute [0.80-3.30] 2.19 (01/23/18 5:49 AM) Denali Absolute [0.30-1.00] 1.07 *HI* (01/23/18 5:49 AM) Eos Absolute [0.00-0.50] 0.19 (01/23/18 5:49 AM) Baso Absolute [0.00-0.20] 0.02 (01/23/18 5:49 AM) Nucleated RBC Automated [0 /100 WBC] 0.0 /100 WBC (01/23/18 5:49 AM) Chemistry Most recent to oldest [Reference Range]: 1 Sodium Lvl [136-144 mEq/L] 137 mEq/L (01/23/18 5:49 AM) Potassium Lvl [3.6-5.1 mEq/L] 3.4 mEq/L *LOW* (01/23/18 5:49 AM) Chloride [99-109 mEq/L] 105 mEq/L (01/23/18 5:49 AM) CO2 [22-32 mEq/L] 24 mEq/L (01/23/18 5:49 AM) AGAP [3-20 mEq/L] 8 mEq/L (01/23/18 5:49 AM) BUN [4-20 mg/dL] 11 mg/dL (01/23/18 5:49 AM) Glucose Lvl [70-100 mg/dL] 98 mg/dL (01/23/18 5:49 AM) Creatinine Lvl [0.64-1.27 mg/dL] 0.87 mg/dL (01/23/18 5:49 AM) eGFR [>60 mL/min] >60 mL/min 1 (01/23/18 5:49 AM) Calcium Lvl [8.6-10.0 mg/dL] 8.6 mg/dL (01/23/18 5:49 AM) Albumin Lvl [3.5-4.8 gm/dL] 2.9 gm/dL *LOW* (01/23/18 5:49 AM) Total Protein [6.1-7.9 gm/dL] 5.6 gm/dL *LOW* (01/21/18 7:05 AM) Globulin [1.9-4.3 gm/dL] 2.5 gm/dL (01/20/18 5:55 AM) ALT [17-63 U/L] 12 U/L *LOW* (01/21/18 7:05 AM) AST [15-41 U/L] 17 U/L (01/21/18 7:05 AM) Alk Phos [26-104 U/L] 52 U/L (01/21/18 7:05 AM) Bili Total [0.2-1.2 mg/dL] 0.3 mg/dL 2 (01/21/18 7:05 AM) Bili Direct [0.0-0.2 mg/dL] 0.1 mg/dL (01/21/18 7:05 AM) Bili Indirect [0.0-1.0 mg/dL] 0.2 mg/dL (01/21/18 7:05 AM) Iron [65-175 mcg/dL] 12 mcg/dL *LOW* (01/19/18 1:47 AM) TIBC [268-490 mcg/dL] 462 mcg/dL (01/19/18 1:47 AM) Iron Sat [11-46 %] 3 % *LOW* (01/19/18 1:47 AM) Transferrin [180-329 mg/dL] 310 mg/dL (01/19/18 1:47 AM) Ferritin Lvl [24-340 ng/mL] 3 ng/mL *LOW* (01/19/18 1:47 AM) Magnesium Lvl [1.8-2.5 mg/dL] 1.5 mg/dL *LOW* (01/21/18 7:05 AM) Phosphorus [2.4-4.7 mg/dL] 4.1 mg/dL 3 (01/23/18 5:49 AM) Troponin [<0.06 ng/mL] <0.05 ng/mL (01/19/18 1:47 AM) Lipase Lvl [8-48 U/L] 15 U/L (01/22/18 5:19 AM) Lactic Acid Lvl [0.5-2.0 mEq/L] 0.9 mEq/L (01/20/18 10:58 AM) Vitamin B12 Lvl [213-816 pg/mL] 805 pg/mL (01/21/18 7:05 AM) Sodium Venous [136-144 mEq/L] 143 mEq/L (01/19/18 1:35 AM) Potassium Venous [3.6-5.1 mEq/L] 3.1 mEq/L 4 *LOW* (01/19/18 1:35 AM) Calcium Ionized Venous [1.19-1.41 mmol/L] 1.18 mmol/L *LOW* (01/19/18 1:35 AM) Total CO2 Venous [25-29 mEq/L] 20 mEq/L *LOW* (01/19/18 1:35 AM) HGB Venous NPT [14.0-16.0 gm/dL] 9.9 gm/dL *LOW* (01/19/18 1:35 AM) HCT Venous [42.0-52.0 %] 29.0 % *LOW* (01/19/18 1:35 AM) Glucose Venous [70-100 mg/dL] 127 mg/dL *HI* (01/19/18 1:35 AM) BUN Venous [4-20] 9 (01/19/18 1:35 AM) Creatinine Venous [0.7-1.2 mg/dL] 0.9 mg/dL (01/19/18 1:35 AM) Venous CL [99-109 mEq/L] 108 mEq/L (01/19/18 1:35 AM) Anion Gap, Miguel [3-20 mEq/L] 15 mEq/L (01/19/18 1:35 AM) Blood Glucose, Capillary [70-100 mg/dL] 94 mg/dL (01/22/18 5:50 AM) Chol [0-199 mg/dL] 105 mg/dL (01/20/18 5:55 AM) Trig [0-149 mg/dL] 52 mg/dL (01/20/18 5:55 AM) HDL [40-84 mg/dL] 39 mg/dL *LOW* (01/20/18 5:55 AM) LDL [0-130 mg/dL] 56 mg/dL (01/20/18 5:55 AM) VLDL Cholesterol [0-28 mg/dL] 10 mg/dL (01/20/18 5:55 AM) Cardiac Risk [0.0-5.7] 2.7 (01/20/18 5:55 AM) TSH with Reflex Free T4 [0.35-5.50 mcIU/mL] 0.75 mcIU/mL (01/21/18 7:05 AM) Hgb A1c [4.1-5.6 %] 5.9 % *HI* (01/20/18 5:55 AM) eAvg Glucose 122.6 mg/dL (01/20/18 5:55 AM) 1Result Comment: Multiply eGFR results by 1.21 for race.2Result Comment: Naproxen, specifically the metabolite O-desmethylnaproxen, may cause spurious elevation in Total Bilirubin levels.3Result Comment: High dosages of liposomal Amphotericin B (AmBisome) therapy or other drug preparations that use a liposomal envelope to facilitate drug delivery may cause falsely elevated results for phosphorus.4Result Comment: This test was performed on a whole blood specimen. The presence or absence of hemolysis cannot be assessed. Hemolysis can falsely elevate potassium levels. Normals are for venous specimens only.Therapeutic Drug Monitoring Most recent to oldest [Reference Range]: 1 Vancomycin Tr [10.0-20.0 ug/mL] 11.0 ug/mL 1 (01/23/18 5:49 AM) 1Result Comment: Trough vancomycin concentrations of 15-20 ug/mL are recommended for complicated infections such as bacteremia, osteomyelitis, endocarditis, meningitis, and hospital acquired pneumonia.Toxicology Most recent to oldest [Reference Range]: 1 Ethanol Lvl None Detected (01/20/18 5:55 AM) Urinalysis Most recent to oldest [Reference Range]: 1 UA Color Yellow (01/20/18 10:06 AM) UA Appear Clear (01/20/18 10:06 AM) UA pH [5.0-8.0] 8.0 (01/20/18 10:06 AM) UA Leuk Est [Negative] Negative (01/20/18 10:06 AM) UA Nitrite [Negative] Positive *ABN* (01/20/18 10:06 AM) UA Protein [Negative] Negative (01/20/18 10:06 AM) UA Glucose [Negative] Negative (01/20/18 10:06 AM) UA Ketones [Negative] Negative (01/20/18 10:06 AM) UA Urobilinogen [<1.0 mg/dL] 2.0 mg/dL *ABN* (01/20/18 10:06 AM) UA Bili [Negative] Negative (01/20/18 10:06 AM) UA Blood [Negative] Negative (01/20/18 10:06 AM) UA Spec Grav [1.003-1.030] 1.010 (01/20/18 10:06 AM) Type Clean Catch (01/20/18 10:06 AM) UA WBC [0-4] 5-10 *ABN* (01/20/18 10:06 AM) Epithelial Cells 0-2 (01/20/18 10:06 AM) UA Bacteria Numerous *ABN* (01/20/18 10:06 AM) UA Mucous Present (01/20/18 10:06 AM) Microbiology Reports TEST:Blood Culture STATUS:Order in Progress BODY SITE: SOURCE:Blood COLLECTED DATE/TIME:01/20/18 7:51 AMBlood CultureNo growth after 12 hours incubation. Nursing unit/client will be called if growth is detected. -TEST:Blood Culture STATUS:Order in Progress BODY SITE: SOURCE:Blood COLLECTED DATE/TIME:01/20/18 7:51 AMBlood CultureNo growth after 12 hours incubation. Nursing unit/client will be called if growth is detected. - Procedures Procedure Date Related Diagnosis Body Site Status Esophagogastroduodenoscopy Balloon 01/23/18 Completed Dilatation1 Procedure with Anesthesia2 01/23/18 Completed 1auto-populated from documented surgical [id number] from documented surgical case Social History Social History Type Response Smoking Status Former smoker, quit more than 30 days ago; Type: Oral entered on: 01/19/18 Assessment and Plan Extracted from: Title: TCC-Referral Author: Eula Gibbs MA Date: 01/22/18 Referral to [facility] Referral Source: C/M Patient Information: D/C Date: Unknown at time of referral Primary Diagnosis: Abd pain/Acute pancreatitis Initial TCC Appointment/Provider: 01/28/2018 at 12:45pm with [place] Bess
[2018-04-25] MEDS: SALINE FLUSH 10ml SYRINGE IVF PRN (18:43)
[2018-04-25] MEDS ORDERED: ACETAMINOPHEN IV 1,000 MG/100 ML VIAL IV ONE (20:50)
[2018-04-25] MEDS ORDERED: MORPHINE SULFATE 4mg INJECTION IVP ONE (21:16)
[2018-04-25] MEDS ORDERED: DOXYCYCLINE 100 MG in NS 250ml 250 ML IV ONE (22:00)
[2018-04-25 22:39] VITALS: BMI 34.3
[2018-04-25] MEDS ORDERED: ZOLPIDEM 5 MG TABLET PO PRN (23:20)
[2018-04-25] MEDS ORDERED: GUAIFENESIN/DM 5ml ORAL LIQUID PO PRN (23:20)
[2018-04-25] MEDS ORDERED: CEFTRIAXONE 1 G in NS 100 ML IV SCH (23:20)
--- NOTE | 2018-04-25 23:31 | History & Physical Report ---
History of Present Illness Date: 04/26/18 Chief complaint: fever chills myalgias HPI: very pleasant 48-year-old male who presented to the emergency room after progressive weakness, intermittent fevers chills and myalgias throughout the day. he said he went to bed last night feeling well, he woke this morning, not necessarily feeling good relatively lethargic. he began having fevers in the midmorning and a were intermittent throughout the day. he had chills and sweats and diffuse myalgias, headache and progressive malaise. he says he usually very vivacious exercises a lot etc. he did notice that his left leg got red with a rash and swollen. it sounds like he describes a history of osteomyelitis or perhaps just cellulitis in that area from the past, some doctors told him that there could be some infection that may recur 'around the bone' in the future. he does have varicose veins that have developed around that area. he says these symptoms he is having are perhaps reminiscent of when he has flareups of this. in the emergency room blood cultures were drawn and he was given rocephin and we 've also ordered doxycycline. he received some iv fluids as well and he is feeling perhaps slightly better. he denies any current chest pain shortness of breath nausea vomiting abdominal pain melena or hematochezia. he does have a history of chuck-en-y gastric bypass surgery, he has known anemia, he doesn't really take his vitamins a lot of times when he is supposed to. he also had a bowel surgery where he had absolutely the small intestine removed after perforation. he admits to a history of alcohol abuse, he says he's been sober since january and he is in [employer] and working the program. he denies illicit drug use, he denies smoking tobacco but does chew tobacco daily. Review of Systems All systems PM: 10-point ROS was reviewed, no additional remarkable complaints except Past Medical History Medical History: Medical History (Last Updated 04/25/18 @ 23:32 by Bhanu Cisneros MD) Anemia (Acute) Medical History Updates: s/p gastric bypass surgery. LVH. "murmur". anemia s/ p surgery. recurrent left leg swelling, infection. possible esophageal stricture. pt reports "LVH" (hx seeing cardiology, reports normal stress tst in past). varicose veins Surgical History: Chuck-en-Y gastric surgery. 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) Social history: 2 kids who live w Mom in [place] Medications Home Medications Medication Instructions Recorded Confirmed Type Acetaminophen [Acetaminophen Extra 2,500 mg PO O 04/25/18 04/25/18 History Strength] Ibuprofen [Advil] 1,000 mg PO O 04/25/18 04/25/18 History Allergies Allergy/AdvReac Type Severity Reaction Status Date / Time No Known Allergies Allergy Verified 04/25/18 18:09 Exam Vital Signs: Temperature 99.5 F 04/25/18 22:32 Pulse Rate 70 04/25/18 22:32 Respiratory Rate 16 04/25/18 22:32 Blood Pressure 139/71 04/25/18 22:32 Pulse Oximetry 97 04/25/18 22:32 Height/Weight/BMI: Height 1.75 m Weight 105.5 kg Body Mass Index 34.3 - Constitutional Present: no acute distress, obese (appears mildly ill) - Routine HEENT Exam Eye: Present: EOMI, PERRL. Absent: conjunctival icterus ENT: Present: mucous membranes moist - Routine Neck Exam Present: supple (can touch chin to chest w/o distress) - Routine Respiratory Exam Present: CTA bilaterally. Absent: accessory muscle use - Routine Cardiovascular Exam Present: RRR, S1, S2, no murmur - Routine Abdominal Exam Present: soft, normoactive bowel sounds, non distended, non tender - Routine Extremities Exam Present: edema, tenderness Comments: left leg reported midly swollen, varicosities noted, erythema and tenderness mid ladd/leg area - Routine Skin Exam Present: warm - Routine Neurological Exam Present: alert, oriented X3, CN II-XII intact. Absent: motor deficit Results - Labs CBC & Chem 7: 04/26/18 04:21 04/25/18 18:35 Microbiology Results: Microbiology 04/25/18 19:31 Urine, Voided (Cc/notcc) Urine Culture - Preliminary Culture Initiated - Results Pending 04/25/18 18:40 Peripheral/Iv Start Blood Culture - Preliminary Culture Initiated - Results Pending 04/25/18 18:35 Peripheral/Iv Start Blood Culture - Preliminary Culture Initiated - Results Pending Assessment and Plan Assessment and Plan: 1. probable left leg cellulitis with sepsis present on admission 2. history of probably cellulitis related to varicose veins and has been recurrent versus osteomyelitis/ no records are available here 3. myalgias and chills fevers secondary to above issues and sepsis 4. sepsis present on admission related to above 5. history of alcoholism, currently in remission 6. 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 acute encephalopathy, present on admit but better now from above issues Plans 1. IV rocephin, doxy for probable strep spp (doxy could cover MRSA but non purulent so less suspicious) 2. sitter x-ray or mri of the leg if truly suspicious of osteomyelitis but honestly i'm not 3. iv fluids 4. follow up on cultures 5. Will change to full admit (initially "no source" but I think left leg is liekly source Resuscitation Status: Full Code - Physician Narrative Physician: Justine Shi MD Narrative: Date: 04/26/18 Time: 11:15 See note dictated 08/27 for my updates. Hospital Course Summary Disclaimer: The visit summary below is not to be considered part of the above Progress Note.
[2018-04-25] MEDS ORDERED: MORPHINE SULFATE 2mg INJECTION IVP PRN (23:44)
[2018-04-26] MEDS: NS 1,000 ML IV SCH ×4 (00:38→23:55)
[2018-04-26] MEDS ORDERED: CEFTRIAXONE 1 G in NS 100 ML IV SCH ×2 (06:30→09:00)
[2018-04-26] MEDS ORDERED: MORPHINE SULFATE 4mg INJECTION IVP PRN (06:30)
[2018-04-26] MEDS: Oxycodone *IR* 5 MG TABLET PO PRN (08:50)
--- NOTE | 2018-04-26 08:50 | CT Scan Report ---
Indication: ms changes PROCEDURE: CT head/brain wo con: Encounter: Initial Comparison: None Technique: Axial CT images through the head were performed without contrast. Iterative Reconstruction dose reducing technique was utilized. FINDINGS: The ventricles are of normal size, shape, and contour for the patient's age. There are scattered areas of low attenuation in the white matter which most likely represent changes from chronic microvascular ischemia. The brainstem, cerebellum, and cerebral hemispheres otherwise have a normal morphology and CT attenuation. There is no evidence of midline displacement. No hemorrhage, signs of acute territorial stroke, mass effect, mass lesions, or edema is evident. The visualized portions of the skull base, midface, and calvarium demonstrate no abnormality. The paranasal sinuses are well aerated and free of significant disease. The tympanic and mastoid cavities appear normal. IMPRESSION: No acute intracranial abnormality or hemorrhage. .
--- NOTE | 2018-04-26 09:00 | XRay Report ---
Indication: fever PROCEDURE: XR chest 2V: Encounter: Initial Comparison: None. Findings: There is cardiomegaly and pulmonary vascular congestion without overt CHF. No lobar consolidation or pleural effusion. No mediastinal or hilar adenopathy. The trachea is midline. No significant tortuosity of the descending thoracic aorta. No subdiaphragmatic free air. There is perhaps mild degenerative disc disease of the thoracic spine. The vertebral body heights and the alignments appear well-preserved. Impression: Cardiomegaly and pulmonary vascular congestion without overt CHF. .
[2018-04-26] MEDS: SALINE FLUSH 10ml SYRINGE IVF PRN ×2 (11:20→16:49)
--- NOTE | 2018-04-26 11:57 | Progress Note ---
Progress Note: Dr. Lipscomb's note reviewed. Mr. Villanueva interviewed and examined. CC: Fevers, myalgias, painful/red leg HPI: Mr. Villanueva's 48 year old male with a history of cellulitis of the left lower extremity. He reports awakening yesterday feeling somewhat lethargic followed by onset of fevers by mid morning with associated chills and sweats. He experienced generalized myalgias and arthralgias with increasing headache throughout the day. Later in the day he noticed erythema over the left ladd which was tender to palpation where his previously experienced cellulitis. He has been warned that he may have recurrent cellulitis. Last episode of cellulitis was in January 2018. Pain continued to escalate prompting a call to EMS. Initial temperature reported by EMS was 103.5 patient history although on arrival in the ER the patient's temperature was 100.7 and maximum temperature reported was 101.6. Some confusion was described for which CT head was obtained and was negative. Mental status improved with IV fluids in the emergency room, white count was unremarkable but CRP was elevated at 63. Lower extremity erythema was not evident on ER assessment but following admission to the medical unit erythema over the left ladd was clearly present and antibiotics were narrowed to coverage for strep cellulitis. Patient continues to have generalized myalgias/arthralgias overnight in addition to chronic dental pain and headaches. He is had no associated dyspnea, nausea, or vomiting. Patient reports he works outside and has been exposed to mosquitoes recently. PH/SH/FH: agree with that recorded above by Dr. Lipscomb with clarification the patient has been told he has an esophageal stricture and has previously had a dilatation performed. He is supposed to be on vitamin supplements following Chuck-en-Y but has not been taking consistently. Patient chews about 1/2 can of chewing tobacco daily but does not smoke cigarettes. He has been active at the [employer] and lives at the [address] [place] [address] in [place] to enhance sobriety. Patient has not establish a local physician since moving to the [facility] recently; he would like Nicholas Haas to be his alternate decision maker and he requests full code. 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 ROS: 10 point review positive only for poor dentition with chronic oral pain and headaches in addition to athlete's foot bilaterally not being actively treated. Remainder of review of systems is negative or as per history of present illness. EXAM: General-uncomfortable appearing male, alert, appropriate verbal responses; 98.5 , 51, 18, 134/75, 99% room air HEENT-PERRL, EOMI without nystagmus, conjunctiva clear, sclera anicteric, conjugate gaze, facial structures symmetric, oropharynx clear except chewing tobacco bits on tongue, neck supple and without adenopathy Lungs-respirations nonlabored, good airflow, breath sounds clear Cardiac-regular rhythm, S1-S2 Abd-soft, nontender, bowel sounds present Ext-+1 nonpitting edema bilateral lower extremities; no inguinal adenopathy appreciated Skin-20 x 20 cm slightly irregular area of erythema over the anterior and medial left ladd-no ulcerations or wounds visible within area of air edema, well demarcated-patient indicates erythema has faded somewhat from yesterday; feet dry with extensive cracking between toes and over anterior surface of the toes consistent with tinea Neuro-cranial nerves 3-12 intact, sensation intact to light touch 4 extremities , motor tone normal, no tremors, power within normal limits Psych-calm, cooperative, pleasant DATA: CRP 63.7, lactic acid 0.9, WBC 8.6 with 93% neutrophils on presentation, 5.6 this morning; hemoglobin 9.8-9.2 with MCV 82. Chemistries unremarkable. Urinalysis negative, respiratory viral panel negative Chest x-ray reviewed by myself demonstrating cardiomegaly with minor vascular congestion; CT head also reviewed by myself-negative A/P: Acute cellulitis-likely strep Altered mental status, resolved Fever, resolved (103.5 per EMS) Tinea pedis Chronic anemia Chronic headaches/poor dentition hx alcohol abuse hx of Chuck-en-Y Esophageal stricture-asymptomatic LVH Chronic lower extremity edema/possible lymphedema Blood cultures obtained in the emergency room-negative overnight but within 24 hour time window at present. Will convert from ceftriaxone to cefazolin 2 g IV every 8 hours for improved strep coverage; can potentially discharge on Keflex as soon as good clinical response evident. Repeat CRP/CBC in a.m. Ketorolac added for pain control-prefer to minimize IV/po narcotics in patient with history abuse; chronic headaches attributed to poor dentition-will need dental follow-up in addition to referral to primary care physician. Chlortrimazole cream initiated for tinea pedis which may be source of cellulitis. Iron studies will be obtained due to anemia with low MCV; resume iron replacement and B-12 in addition to multivitamin-patient reminded of need for vitamin supplementation after Chuck-en-Y. Continue IV fluids at present pending further stabilization and improved oral intake. Discussed with nursing; discussed with case management. High-risk medications in use-IV morphine.
[2018-04-26] MEDS: CEFAZOLIN 2 G in NS 100 ML IV SCH (16:49)
[2018-04-26] MEDS: KETOROLAC 30 MG/ML INJECTION IVP PRN (16:49)
[2018-04-26] MEDS: HYDROMORPHONE 2 MG/ML INJECTION IVP PRN (21:45)
[2018-04-27] MEDS: CEFAZOLIN 2 G in NS 100 ML IV SCH ×2 (01:36→08:44)
[2018-04-27] MEDS: HYDROMORPHONE 2 MG/ML INJECTION IVP PRN ×6 (01:36→14:40)
[2018-04-27] MEDS: CYANOCOBALAMIN (B-12) 500mcg TABLET PO SCH (08:45)
[2018-04-27] MEDS: FOLIC ACID 1 MG TABLET PO SCH (08:45)
[2018-04-27] MEDS: OMEPRAZOLE 20 MG CAPSULE PO SCH (08:45)
[2018-04-27] MEDS: FERROUS GLUCONATE 324 MG TABLET PO SCH (08:46)
--- NOTE | 2018-04-27 10:25 | Progress Note ---
- Date 04/27/18 Subjective: Having severe pain in his legs and reports pain in all of his joints now. Received IV dilaudid overnight and feels that helped; morphine was not helpful. Also on po narcotics. Received toradol yesterday with little improvement. No fevers, chills, dyspnea. Left leg with mild erythema; he feels it is basically the same. Discussed history of osteomyelitis; he is unclear on whether he had a bone infection but also states that at one point they were talking about removing some bone or even possible amputation of his left leg. This has been a couple of years ago at least. Discussed his sobriety, recently stopped drinking. I have concerns that narcotics jeapordize his sobriety but he feels that is not the case. Objective Vital signs: Temperature 97.6 F 04/27/18 07:50 Pulse Rate 50 L 04/27/18 07:50 Respiratory Rate 18 04/27/18 07:50 Blood Pressure 157/91 H 04/27/18 07:50 Pulse Oximetry 97 04/27/18 07:50 Rhythm: Normal Sinus Rhythm Height/Weight/BMI: Height 1.75 m Weight 107.8 kg Body Mass Index 34.3 - Constitutional Present: no acute distress, well nourished, well developed - Routine HEENT Exam Head: Present: normocephalic, atraumatic Eye: Present: EOMI, PERRL. Absent: conjunctival icterus ENT: Present: mucous membranes moist, oropharynx clear - Routine Respiratory Exam Present: CTA bilaterally. Absent: rales, rhonchi - Routine Cardiovascular Exam Present: RRR, no murmur - Routine Abdominal Exam Present: soft, non distended, non tender - Routine Extremities Exam Present: no edema, pulses intact, normal capillary refill Comments: left calf with mild erythema, no bullae or pustules noted - Routine Skin Exam Present: dry, warm. Absent: jaundice - Routine Neurological Exam Present: alert, oriented X3, normal speech - Routine Psychiatric Exam Present: normal affect, normal thought process Results - Labs CBC & Chem 7: 04/27/18 04:47 04/27/18 04:47 Labs: CRP increased to 136 Microbiology Results: Microbiology 04/25/18 19:31 Urine, Voided (Cc/notcc) Urine Culture - Preliminary Coag negative Staphylococcus 04/25/18 18:40 Peripheral/Iv Start Blood Culture - Preliminary No Growth After 1 Day 04/25/18 18:35 Peripheral/Iv Start Blood Culture - Preliminary No Growth After 1 Day Assessment and Plan Assessment and Plan: Assessment: Left leg cellulitis with sepsis present on admission History of cellulitis versus osteomyelitis in the past, no records available currently, was not living locally at that time Sepsis with possible skin source --> Hemodynamics have been stable, leukocytosis resolved --> Diffuse joint pains, very high CRP (increasing despite antibiotics), now with coag neg staph in the urine and unclear source --> History of EtOH abuse but denies drug abuse/IVDU --> Received rocephin initially, started on ancef and doxycycline after admission History of alcoholism, currently in remission since January 2018 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 Hb overall stable at 9.0, MCV 82 Plan: Given rising CRP, worsening pain, prelim urine results will change antibiotics to vancomycin and clindamycin today IV Exam not consistent with pain complaints but very elevated inflammatory markers ; repeat CRP tomorrow and if not improving will need to MRI the LLE and may need autoimmune w/u as well Continue IVF but will change to LR @ 50 cc/hour today, encourage po intake Continue to follow cultures (blood NGTD) Continue po iron; would benefit from IV iron but need to ensure no osteomyelitis /endocarditis prior to IV iron administration If blood cultures positive will pursue TTE, no murmur on exam, unlikely to be endocarditis given history Continue current pain medications, will continue to discuss pain and sobriety with him, decrease IV dilaudid frequency from current order CMP, CBC in AM for surveillance Encourage ambulation today if able Check CPK with AM labs as well as repeat CRP as above Discussed with patient, bedside RN. DVT Prophylaxis: other (ambulating ) Resuscitation Status: Full Code - Physician Narrative Narrative: Date: 04/27/18 Time: 1022 Hospital Course Summary Disclaimer: The visit summary below is not to be considered part of the above Progress Note. Hospital Course: Plan: Given rising CRP, worsening pain, prelim urine results will change antibiotics to vancomycin and clindamycin today IV Exam not consistent with pain complaints but very elevated inflammatory markers ; repeat CRP tomorrow and if not improving will need to MRI the LLE and may need autoimmune w/u as well Continue IVF but will change to LR @ 50 cc/hour today, encourage po intake Continue to follow cultures (blood NGTD) Continue po iron; would benefit from IV iron but need to ensure no osteomyelitis /endocarditis prior to IV iron administration If blood cultures positive will pursue TTE, no murmur on exam, unlikely to be endocarditis given history Continue current pain medications, will continue to discuss pain and sobriety with him, decrease IV dilaudid frequency from current order CMP, CBC in AM for surveillance Encourage ambulation today if able Check CPK with AM labs as well as repeat CRP as above
[2018-04-27] MEDS: LR 1,000 ML IV SCH (11:02)
[2018-04-27] MEDS: CLINDAMYCIN PB 600 MG/50 ML BAG IV SCH ×2 (11:03→17:45)
[2018-04-27] MEDS: NS 1,000 ML IV SCH (11:04)
[2018-04-27] MEDS: ACETAMINOPHEN 325 MG TABLET PO PRN (14:40)
[2018-04-27] MEDS ORDERED: HYDROMORPHONE 2 MG/ML INJECTION IVP PRN (15:51)
[2018-04-27] MEDS ORDERED: VANCOMYCIN - PHARMACY CONSULT MC ONE (16:26)
[2018-04-27] MEDS: Oxycodone *IR* 5 MG TABLET PO PRN ×2 (17:42→21:42)
[2018-04-27] MEDS: NICOTINE 21 MG PATCH TD SCH (19:56)
[2018-04-27] MEDS: KETOROLAC 30 MG/ML INJECTION IVP PRN (19:57)
[2018-04-27] MEDS: SALINE FLUSH 10ml SYRINGE IVF PRN (19:58)
[2018-04-28] MEDS: CLINDAMYCIN PB 600 MG/50 ML BAG IV SCH ×3 (02:40→17:52)
[2018-04-28] MEDS: OMEPRAZOLE 20 MG CAPSULE PO SCH (05:39)
[2018-04-28] MEDS: LR 1,000 ML IV SCH (08:30)
[2018-04-28] MEDS: CYANOCOBALAMIN (B-12) 500mcg TABLET PO SCH (08:48)
[2018-04-28] MEDS: NICOTINE PATCH REMOVAL TD SCH (08:49)
[2018-04-28] MEDS: FERROUS GLUCONATE 324 MG TABLET PO SCH (08:49)
[2018-04-28] MEDS: FOLIC ACID 1 MG TABLET PO SCH (08:49)
[2018-04-28] MEDS ORDERED: NS FLUSH BAG 500ml IV PRN (08:54)
[2018-04-28] MEDS: Oxycodone *IR* 5 MG TABLET PO PRN ×3 (10:20→22:13)
[2018-04-28] MEDS: NICOTINE 21 MG PATCH TD SCH (10:20)
--- NOTE | 2018-04-28 12:51 | Progress Note ---
- Date 04/28/18 Subjective: Events of the afternoon/evening reviewed with nursing. Initially was going to leave AMA yesterday but decided to stay. Found to have chewing tobacco after a visitor left; would not give it to the nursing staff when asked but did put it away. Nicotine patch placed last night. Refusing toradol and APAP so IV dilaudid discontinued, using prn oxycodone for pain. Sleeping soundly this morning on my rounds; I returned around 11 am and he was still sleeping, awakened briefly but did not want to discuss his health issues. Remains on IV vanco/clindamycin; ESR significantly improved today. Erythema resolving in the left leg. No ROS obtainable as he is not willing. Objective Vital signs: Temperature 96.9 F 04/28/18 10:11 Pulse Rate 52 L 04/28/18 10:11 Respiratory Rate 16 04/28/18 10:20 Blood Pressure 183/98 H 04/28/18 10:11 Pulse Oximetry 97 04/28/18 10:11 Rhythm: Normal Sinus Rhythm Height/Weight/BMI: Height 1.75 m Weight 104 kg Body Mass Index 34.3 - Constitutional Present: no acute distress, well nourished, well developed - Routine HEENT Exam Head: Present: normocephalic, atraumatic Eye: Present: EOMI, PERRL. Absent: conjunctival icterus ENT: Present: mucous membranes moist, oropharynx clear - Routine Respiratory Exam Present: CTA bilaterally. Absent: rales, wheezes - Routine Cardiovascular Exam Present: RRR. Absent: murmur - Routine Abdominal Exam Present: soft, non distended - Routine Extremities Exam Comments: LLE with mild erythema, improved from previous, no significant edema in BLE - Routine Skin Exam Present: dry, warm. Absent: jaundice Results - Labs CBC & Chem 7: 04/28/18 05:13 04/28/18 05:13 Labs: CRP improved to 61 from <130 Microbiology Results: Microbiology 04/25/18 18:35 Peripheral/Iv Start Blood Culture - Preliminary No Growth After 2 Days 04/25/18 18:40 Peripheral/Iv Start Blood Culture - Preliminary No Growth After 2 Days 04/25/18 19:31 Urine, Voided (Cc/notcc) Urine Culture - Preliminary Coag negative Staphylococcus Assessment and Plan Assessment and Plan: Assessment: Left leg cellulitis with sepsis present on admission History of cellulitis versus osteomyelitis in the past, no records available currently, was not living locally at that time Sepsis with possible skin source --> Hemodynamics have been stable, leukocytosis resolved rapidly but pain and inflammatory markers worsening initially --> Diffuse joint pains, very high CRP (increasing despite antibiotics), now with coag neg staph in the urine and unclear source (full susc pending) --> History of EtOH abuse but denies drug abuse/IVDU --> Received rocephin initially, started on ancef and doxycycline after admission --> transitioned to vanco/clinda on 04/27 History of alcoholism, currently in remission since January 2018 Drug seeking behaviors and manipulations at times 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 Hb overall stable and >9, MCV 82 Tobacco dependence Plan: Continue vancomycin and clindamycin today; pharmacy to manage vancomycin dosing Hold further IVF and encourage po intake Continue nicotine patch; discussed that chewing tobacco should not be used in the hospital Continue to follow cultures (blood NGTD, urine coag neg staph) Continue po iron for now; would benefit from IV iron but need to ensure no osteomyelitis/endocarditis prior to any IV iron administration If blood cultures positive will pursue TTE, no murmur on exam, unlikely to be endocarditis given history No further IV narcotics, continue oxycodone prn as well as toradol and APAP as ordered CMP, renal panel in AM for surveillance Encourage ambulation today if able Hold on MRI of the leg acutely as he is improving, if needed can be obtained tomorrow Discussed with patient, bedside RN. DVT Prophylaxis: SCD's, other (ambulating ) Resuscitation Status: Full Code - Physician Narrative Narrative: Date: 04/27/18 Time: 1022 Hospital Course Summary Disclaimer: The visit summary below is not to be considered part of the above Progress Note. Hospital Course: Assessment: Left leg cellulitis with sepsis present on admission History of cellulitis versus osteomyelitis in the past, no records available currently, was not living locally at that time Sepsis with possible skin source --> Hemodynamics have been stable, leukocytosis resolved rapidly but pain and inflammatory markers worsening initially --> Diffuse joint pains, very high CRP (increasing despite antibiotics), now with coag neg staph in the urine and unclear source (full susc pending) --> History of EtOH abuse but denies drug abuse/IVDU --> Received rocephin initially, started on ancef and doxycycline after admission --> transitioned to vanco/clinda on 04/27 History of alcoholism, currently in remission since January 2018 Drug seeking behaviors and manipulations at times 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 Hb overall stable and >9, MCV 82 Tobacco dependence 04/27 Given rising CRP, worsening pain, prelim urine results will change antibiotics to vancomycin and clindamycin today IV Exam not consistent with pain complaints but very elevated inflammatory markers ; repeat CRP tomorrow and if not improving will need to MRI the LLE and may need autoimmune w/u as well Continue IVF but will change to LR @ 50 cc/hour today, encourage po intake Continue to follow cultures (blood NGTD) Continue po iron; would benefit from IV iron but need to ensure no osteomyelitis /endocarditis prior to IV iron administration If blood cultures positive will pursue TTE, no murmur on exam, unlikely to be endocarditis given history Continue current pain medications, will continue to discuss pain and sobriety with him, decrease IV dilaudid frequency from current order CMP, CBC in AM for surveillance Encourage ambulation today if able Check CPK with AM labs as well as repeat CRP as above 04/28 Continue vancomycin and clindamycin today; pharmacy to manage vancomycin dosing Hold further IVF and encourage po intake Continue nicotine patch; discussed that chewing tobacco should not be used in the hospital Continue to follow cultures (blood NGTD, urine coag neg staph) Continue po iron for now; would benefit from IV iron but need to ensure no osteomyelitis/endocarditis prior to any IV iron administration If blood cultures positive will pursue TTE, no murmur on exam, unlikely to be endocarditis given history No further IV narcotics, continue oxycodone prn as well as toradol and APAP as ordered CMP, renal panel in AM for surveillance Encourage ambulation today if able Hold on MRI of the leg acutely as he is improving, if needed can be obtained tomorrow
[2018-04-28] MEDS: SALINE FLUSH 10ml SYRINGE IVF PRN ×2 (14:55→22:13)
[2018-04-28] MEDS: ACETAMINOPHEN 325 MG TABLET PO PRN (22:14)
[2018-04-29] MEDS: CLINDAMYCIN PB 600 MG/50 ML BAG IV SCH ×2 (03:25→11:28)
[2018-04-29] MEDS: KETOROLAC 30 MG/ML INJECTION IVP PRN (04:07)
[2018-04-29] MEDS: Oxycodone *IR* 5 MG TABLET PO PRN ×2 (04:08→11:57)
[2018-04-29] MEDS: OMEPRAZOLE 20 MG CAPSULE PO SCH (07:27)
[2018-04-29 08:45] VITALS: BP 138/77; PULSE 42; RESP 14; TEMP 97.5; O2SAT 99
[2018-04-29] MEDS: NICOTINE 21 MG PATCH TD SCH (08:48)
[2018-04-29] MEDS: NICOTINE PATCH REMOVAL TD SCH (08:48)
[2018-04-29] MEDS: FERROUS GLUCONATE 324 MG TABLET PO SCH (08:48)
[2018-04-29] MEDS: FOLIC ACID 1 MG TABLET PO SCH (08:48)
[2018-04-29] MEDS: CYANOCOBALAMIN (B-12) 500mcg TABLET PO SCH (08:48)
--- NOTE | 2018-04-29 11:14 | Discharge Summary ---
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 Acute encephalopathy, present on admission but improved with supportive care Normocytic anemia with severe Fe deficiency --> Fe sat 3%, on po iron daily, was holding IV iron until infection controlled Tobacco dependence - Procedures Procedures: None - Laboratory Labs: 04/29/18 06:41 04/29/18 06:41 Laboratory Tests 04/27/18 04:47 Iron 11 L TIBC 360 % Saturation 3 L Laboratory Tests 04/25/18 04/27/18 04/28/18 18:35 04:47 05:13 C-Reactive Protein 63.7 H 135.8 H 61.7 H Laboratory Tests 04/25/18 19:31 Ur Collection Type Urine, void-cc/notcc Urine Color Yellow Urine Clarity Clear Urine pH 8.5 A Ur Specific [place] 1.015 Urine Protein Negative Urine Glucose (UA) Negative Urine Ketones Negative Urine Occult Blood Negative Urine Nitrate Negative Urine Bilirubin Negative Urine Urobilinogen 0.2 Ur Leukocyte Esterase Negative Urinalysis Comment Microscopic not ind. - Microbiology Microbiology 04/25/18 19:31 Urine, Voided (Cc/notcc) Urine Culture - Final Coag negative Staphylococcus 04/25/18 18:35 Peripheral/Iv Start Blood Culture - Preliminary No Growth After 3 Days 04/25/18 18:40 Peripheral/Iv Start Blood Culture - Preliminary No Growth After 3 Days - Radiology Radiology: 04/25/18-chest x-ray- Impression: Cardiomegaly and pulmonary vascular congestion without overt CHF. 04/25/18-CT head-IMPRESSION: No acute intracranial abnormality or hemorrhage. - Pathology None History of Present Illness HPI: very pleasant 48-year-old male who presented to the emergency room after progressive weakness, intermittent fevers chills and myalgias throughout the day. he said he went to bed last night feeling well, he woke this morning, not necessarily feeling good relatively lethargic. he began having fevers in the midmorning and a were intermittent throughout the day. he had chills and sweats and diffuse myalgias, headache and progressive malaise. he says he usually very vivacious exercises a lot etc. he did notice that his left leg got red with a rash and swollen. it sounds like he describes a history of osteomyelitis or perhaps just cellulitis in that area from the past, some doctors told him that there could be some infection that may recur 'around the bone' in the future. he does have varicose veins that have developed around that area. he says these symptoms he is having are perhaps reminiscent of when he has flareups of this. in the emergency room blood cultures were drawn and he was given rocephin and we 've also ordered doxycycline. he received some iv fluids as well and he is feeling perhaps slightly better. he denies any current chest pain shortness of breath nausea vomiting abdominal pain melena or hematochezia. he does have a history of miguel-en-y gastric bypass surgery, he has known anemia, he doesn't really take his vitamins a lot of times when he is supposed to. he also had a bowel surgery where he had absolutely the small intestine removed after perforation. he admits to a history of alcohol abuse, he says he's been sober since january and he is in [facility] and working the program. he denies illicit drug use, he denies smoking tobacco but does chew tobacco daily. Objective Vital signs: Temperature 97.5 F 04/29/18 08:00 Pulse Rate 42 L 04/29/18 08:00 Respiratory Rate 14 04/29/18 08:00 Blood Pressure 138/77 04/29/18 08:00 Pulse Oximetry 99 04/29/18 08:00 Rhythm: Normal Sinus Rhythm Height/Weight/BMI: Height 1.75 m Weight 101.5 kg Body Mass Index 34.3 - Constitutional Present: no acute distress, well nourished, well developed - Routine HEENT Exam Eye: Present: EOMI ENT: Present: mucous membranes moist, dentition normal - Routine Respiratory Exam Present: CTA bilaterally. Absent: wheezes - Routine Cardiovascular Exam Present: RRR. Absent: murmur - Routine Abdominal Exam Present: soft, normoactive bowel sounds, non distended. Absent: tenderness - Routine Extremities Exam Present: no edema, pulses intact - Routine Back/Spine/Pelvis Exam Back/Spine: Present: full ROM - Routine Skin Exam Present: intact, dry, warm - Routine Neurological Exam Present: alert, oriented X3, CN II-XII intact, moving all extremities - Routine Lymphatic Exam Lymphatic: Absent: adenopathy - Routine Psychiatric Exam Present: normal affect, normal thought process, cooperative Hospital Course This is a general summary of the patient's hospital course. For more details refer to the complete medical record. Hospital course: Assessment: Left leg cellulitis with sepsis present on admission History of cellulitis versus osteomyelitis in the past, no records available currently, was not living locally at that time Sepsis with possible skin source --> Hemodynamics have been stable, leukocytosis resolved rapidly but pain and inflammatory markers worsening initially --> Diffuse joint pains, very high CRP (increasing despite antibiotics), now with coag neg staph in the urine and unclear source (full susc pending) --> History of EtOH abuse but denies drug abuse/IVDU --> Received rocephin initially, started on ancef and doxycycline after admission --> transitioned to vanco/clinda on 04/27 History of alcoholism, currently in remission since January 2018 Drug seeking behaviors and manipulations at times 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 Hb overall stable and >9, MCV 82 Tobacco dependence 04/25 Admitted with cellulitis left lower extremity; no clinical suspicion of osteomyelitis. Treatment initiated with Rocephin and doxycycline 04/26 Blood cultures obtained in the emergency room-negative overnight but within 24 hour time window at present. Will convert from ceftriaxone to cefazolin 2 g IV every 8 hours for improved strep coverage; can potentially discharge on Keflex as soon as good clinical response evident. Repeat CRP/CBC in a.m. Ketorolac added for pain control-prefer to minimize IV/po narcotics in patient with history abuse; chronic headaches attributed to poor dentition-will need dental follow-up in addition to referral to primary care physician. Chlortrimazole cream initiated for tinea pedis which may be source of cellulitis. Iron studies will be obtained due to anemia with low MCV; resume iron replacement and B-12 in addition to multivitamin-patient reminded of need for vitamin supplementation after Miguel-en-Y. Continue IV fluids at present pending further stabilization and improved oral intake. 04/27 Given rising CRP, worsening pain, prelim urine results will change antibiotics to vancomycin and clindamycin today IV Exam not consistent with pain complaints but very elevated inflammatory markers ; repeat CRP tomorrow and if not improving will need to MRI the LLE and may need autoimmune w/u as well Continue IVF but will change to LR @ 50 cc/hour today, encourage po intake Continue to follow cultures (blood NGTD) Continue po iron; would benefit from IV iron but need to ensure no osteomyelitis /endocarditis prior to IV iron administration If blood cultures positive will pursue TTE, no murmur on exam, unlikely to be endocarditis given history Continue current pain medications, will continue to discuss pain and sobriety with him, decrease IV dilaudid frequency from current order Encourage ambulation today if able 04/28 Continue vancomycin and clindamycin today; pharmacy to manage vancomycin dosing Hold further IVF and encourage po intake Continue nicotine patch; discussed that chewing tobacco should not be used in the hospital Continue to follow cultures (blood NGTD, urine coag neg staph) Continue po iron for now; would benefit from IV iron but need to ensure no osteomyelitis/endocarditis prior to any IV iron administration If blood cultures positive will pursue TTE, no murmur on exam, unlikely to be endocarditis given history No further IV narcotics, continue oxycodone prn as well as toradol and APAP as ordered Hold on MRI of the leg acutely as he is improving, if needed can be obtained tomorrow 04/29/18- Discharge Eligio is seen and examined prior to discharge. RLE erythema is significantly improved. He denies having any other pain or concerns. He feels that he is ready for discharge home. He was noted to be bradycardic down to 38-43. Asymptomatic with this and states that this is "normal" for him. Blood cultures remains negative on day 3. Urine culture is positive for coag negative staph. He will be discharged on 10 more days of PO Clindamycin for tx of both UTI as well as lower extremity cellulitis He is given Rx for nicotine patch and is encouraged to continue with tobacco cessation. Will recommend continued on PO Iron supplementation given normocytic anemia. Patient would like to establish and follow up with [facility] in [place] [facility]. He is given this information at time of discharge and states gradual a establishment appointment. Time spent with patient: discharge greater than 30 minutes Resuscitation Status: Full Code Discharge Plan - Discharge Disposition Discharge Date: 04/29/18 Disposition: 01 Discharged Home, Self-Care *Condition: Improved Reason For Visit (Visit label in EMR): sepsis with cellulitis left left - Discharge Medications *Discharge Medications: New Acetaminophen [Tylenol] 650 mg PO Q4H PRN tab PRN Reason: Discomfort Clindamycin [Cleocin] 300 mg PO TID 10 Days #30 cap Ferrous Gluconate [Fergon] 324 mg PO WB tab Nicotine Patch [Nicoderm] 21 mg TD DAILY #5 patch Changed Ibuprofen [Advil] 800 mg PO TID PRN #0 PRN Reason: pain Discontinued Acetaminophen [Acetaminophen Extra Strength] 2,500 mg PO O - Discharge Packet/Instructions *Diet: Regular *Activity: As tolerated *Pain Management/Treatment: Tylenol and Ibuprofen as needed for pain *Wound Care: N/A Additional Instructions: Take Clindamycin antiobiotic 300mg TID for 10 days *Expected Signs/Symptoms: Continued improvement in symptoms *Notify Physician if: Fever, chills, worsening leg pain, redness or other concerning symptoms *Pending Lab/Results: No Pending Lab - Referrals/Follow Up *Referrals/Follow Up: [facility] [Provider Group] - 1 Week (Please call the [place] [facility] to establish primiary care in 1 week. ) - Patient Handouts Patient Handouts: Cellulitis (GEN), Sepsis (GEN) - Dismissal Complete Discharge Instructions are:: Complete Physician Narrative - Narrative Physician: Justine Shi MD Attestation Narrative: Date: 04/29/18 Time: 1430 I have independently evaluated and examined this patient. I reviewed the chart, the patient's history, and the [employer]ISTRAR/PA's documented findings as above. We discussed and formulated the assessment and plan as above with additions as below: Mr. Villanueva reported feeling improved and that his leg was better when I initially saw him at approximately 9 AM this morning; I reevaluated him at approximately 11:30 after ongoing bradycardia was noted with heart rates into the upper 30s on telemetry. Patient reports he always has heart rates in the 30s and 40s and that that is normal for him. Heart rates recorded through the hospital stay reviewed with the patient but he insisted that bradycardia is typical for him following Miguel-en-Y surgery indicating that prior to weight loss his heart rate was always 100 or higher. He reports no prior cardiology assessment; he denied lightheadedness or difficulty ambulating at present. EKG reviewed by myself-sinus rhythm with rate in the 80s-heart rate increases with minimal activity. NAD, sleeping whenever I entered the room but awakens to voice Regular rhythm, S1-S2, very faint systolic murmur lower sternal border No residual erythema in previously marked area of the left ladd nor is there residual edema. Stable for discharge-will treat with clindamycin. Need for outpatient follow-up discussed with the patient. Coag-negative staph cultured and urine however UA was entirely unremarkable and staph consistent with contaminant. Blood cultures negative after 3 days. Will require dental follow-up in addition to medical follow-up.
== END 2018-04-29 13:40 | disposition home or self-care (01) | DRG 871 ==
LOC: EDHOLD 17:58 → ED 17:58 → MED 22:26 → SUATTDRO 23:54
PROVIDERS: ADMIT Pediatrics; ATTEND Internal Medicine